=== PATIENT | male | born 1930 | race Caucasian/White ===

== ENCOUNTER 2016-11-02 10:05 | Inpatient (IN) | payer MEDICARE, BC ==
[~2016-11-02 10:05] MED LIST: ATROPINE SULFATE 0.1 MG/ML 10ML SYRINGE ONE; EPINEPHrine 10 ML SYRINGE (0.1 MG/ML) ONE; LIDOCAINE 2% SYG (PF) 100 MG/5 ML ONE; SODIUM BICARB 8.4% 50 ML SYR (1 MEQ/ML) ONE
[2016-11-02] MEDS ORDERED: PANTOPRAZOLE 40 MG/10 ML VIAL IVP STA (10:18)
[2016-11-02] MEDS ORDERED: SODIUM CHLORIDE 0.9% 1,000 ML IV STA ×2 (10:18)
[2016-11-02] MEDS ORDERED: ONDANSETRON 4 MG/2 ML VIAL IVP STA (10:18)
--- NOTE | 2016-11-02 10:22 | ED ---
General Adult HPI - General Chief complaint: GI Bleed Stated complaint: JORDAN Time Seen by Provider: 11/02/16 10:06 Source: EMS, RN notes reviewed, old records reviewed Mode of arrival: EMS Limitations: no limitations - History of Present Illness Initial comments: This is an 85-year-old male here for evaluation. Patient coming in for evaluation of weakness and dizziness. Patient is on blood thinners, warfarin, patient states is having dark tarry stools for 3 days, and currently bright red blood in his stool. No episodes of syncope. Patient had bowel movement that was positive for blood about 4 hours prior to arrival. Patient has had no bowel movement since, he does feel weak and lightheaded. Symptoms are worse with exertion, patient does have positive history of colonoscopy 2 which are both negative. No history of GI bleed - Related Data Home Medications Medication Instructions Recorded Confirmed Atenolol [Tenormin] 25 mg PO DAILY 11/02/16 11/02/16 Atorvastatin [Lipitor] 20 mg PO HS 11/02/16 11/02/16 Furosemide [Lasix] 20 mg PO DAILY 11/02/16 11/02/16 Lisinopril [Zestril] 10 mg PO DAILY 11/02/16 11/02/16 Warfarin [Coumadin] 2.5 mg PO WE 11/02/16 11/02/16 Warfarin [Coumadin] 5 mg PO SUMOTUTHFRSA 11/02/16 11/02/16 amLODIPine [Norvasc] 10 mg PO DAILY 11/02/16 11/02/16 glyBURIDE, MICRONIZED [Glynase] 3 mg PO AC-BRKFST 11/02/16 11/02/16 hydrALAZINE HCL [Apresoline] 25 mg PO TID 11/02/16 11/02/16 metFORMIN HCL [Glucophage] 1,000 mg PO BID 11/02/16 11/02/16 sitaGLIPtin [Januvia] 100 mg PO DAILY 11/02/16 11/02/16 Allergies Allergy/AdvReac Type Severity Reaction Status Date / Time Sulfa (Sulfonamide Allergy Unknown Verified 11/02/16 10:43 Antibiotics) Review of Systems ROS Statement: Those systems with pertinent positive or pertinent negative responses have been documented in the HPI. ROS Other: All systems not noted in ROS Statement are negative. Past Medical History Past Medical History: Diabetes Mellitus History of Any Multi-Drug Resistant Organisms: None Reported Additional Past Surgical History / Comment(s): cataract, prostate Past Psychological History: No Psychological Hx Reported Smoking Status: Never smoker Past Alcohol Use History: None Reported Past Drug Use History: None Reported General Exam Limitations: no limitations General appearance: alert, in no apparent distress, anxious Head exam: Present: atraumatic, normocephalic, normal inspection Eye exam: Present: normal appearance, PERRL, EOMI. Absent: scleral icterus, conjunctival injection, periorbital swelling ENT exam: Present: normal exam, mucous membranes moist Neck exam: Present: normal inspection. Absent: tenderness, meningismus, lymphadenopathy Respiratory exam: Present: normal lung sounds bilaterally. Absent: respiratory distress, wheezes, rales, rhonchi, stridor Cardiovascular Exam: Present: regular rate, normal rhythm, normal heart sounds. Absent: systolic murmur, diastolic murmur, rubs, gallop, clicks GI/Abdominal exam: Present: soft, normal bowel sounds. Absent: distended, tenderness, guarding, rebound, rigid Extremities exam: Present: normal inspection, full ROM, normal capillary refill. Absent: tenderness, pedal edema, joint swelling, calf tenderness Back exam: Present: normal inspection Neurological exam: Present: alert, oriented X3, CN II-XII intact Psychiatric exam: Present: normal affect, normal mood Skin exam: Present: warm, dry, intact, normal color. Absent: rash Course Vital Signs 11/02/16 10:08 Temperature 97 F L Pulse Rate 87 Respiratory 20 Rate Blood Pressure 123/63 O2 Sat by Pulse 99 Oximetry - Reevaluation(s) Reevaluation #1: 11/02/16 11:33 Patient does still feel weak but is without blood in the stool here in the emergency room EKG Findings - EKG Comments: EKG Findings:: EKG shows NSR rate of 92, OR of 162, QRS of 102, QTc of 467 Medical Decision Making - Medical Decision Making 85 male the ER for evaluation of GI bleed, 3 days of GI bleed blood in stool on Coumadin with Coumadin coagulopathy, patient will be admitted for blood transfusion, monitoring of hemodynamic status - Lab Data Result diagrams: 11/02/16 10:40 Lab Results 11/02/16 Range/Units 10:40 WBC 7.8 (3.8-10.6) k/uL RBC 2.72 L (4.30-5.90) m/uL Hgb 5.5 L* (13.0-17.5) gm/dL Hct 19.9 L* (39.0-53.0) % MCV 73.1 L (80.0-100.0) fL MCH 20.3 L (25.0-35.0) pg MCHC 27.8 L (31.0-37.0) g/dL RDW 17.9 H (11.5-15.5) % Plt Count 336 (150-450) k/uL Neutrophils % 83 % Lymphocytes % 9 % Monocytes % 6 % Eosinophils % 0 % Basophils % 0 % Neutrophils # 6.5 (1.3-7.7) k/uL Lymphocytes # 0.7 L (1.0-4.8) k/uL Monocytes # 0.5 (0-1.0) k/uL Eosinophils # 0.0 (0-0.7) k/uL Basophils # 0.0 (0-0.2) k/uL Hypochromasia Marked Poikilocytosis Slight Anisocytosis Slight Microcytosis Moderate Critical Care Time Critical Care Time: Yes Total Critical Care Time: 31 Disposition Clinical Impression: Gastrointestinal hemorrhage, Anemia, Coumadin toxicity Disposition: ADMITTED IP TO THIS HOSP Condition: Serious Instructions: Gastrointestinal Bleeding (ED) Referrals: Donovan Starks MD [Primary Care Provider] - 1-2 days
[2016-11-02 11:18] LABS: Anisocytosis Slight; Basophils % (A) 0 %; CH 20.3; CHCM 28.1; Eosinophils % (A) 0 %; HDW 3.93; Hypochromasia Marked; Luc # (Auto) 0.14; Luc % (Auto) 2; Lymphocytes # (A) 0.7 k/uL (1.0-4.8); Lymphocytes % (A) 9 %; MCH 20.3 pg (25.0-35.0); MCV 73.1 fL (80.0-100.0); Mean Platelet Volume 7.8; Microcytosis Moderate; Monocytes # (A) 0.5 k/uL (0-1.0); Monocytes % (A) 6 %; Neutrophils # (A) 6.5 k/uL (1.3-7.7); Neutrophils % (A) 83 %; Poikilocytosis Slight; RBC 2.72 m/uL (4.30-5.90); RDW 17.9 % (11.5-15.5); WBC 7.8 k/uL (3.8-10.6); WBC (Perox) 6.92
[2016-11-02 11:21] LABS: MCHC 27.8 g/dL (31.0-37.0)
[2016-11-02 11:24] LABS: HGB 5.5 gm/dL (13.0-17.5)
[2016-11-02 11:25] LABS: HCT 19.9 % (39.0-53.0)
[2016-11-02] MEDS ORDERED: PHYTONADIONE ORAL 5 MG/5 ML ORAL.SYRG PO STA (11:33)
[2016-11-02] MEDS ORDERED: ONDANSETRON 4 MG/2 ML VIAL IVP PRN (11:34)
[2016-11-02 11:47] LABS: Calcium 8.9 mg/dL (8.4-10.2); Magnesium 1.3 mg/dL (1.6-2.3); Potassium 4.7 mmol/L (3.5-5.1); Total Bilirubin 0.3 mg/dL (0.2-1.3); Total Protein 5.9 g/dL (6.3-8.2)
[2016-11-02 12:02] LABS: Creatine Kinase MB 3.5 ng/mL (0.0-2.4); Troponin I 0.092 ng/mL (0.000-0.034)
[2016-11-02 13:18] LABS: Partial Thromboplastin Time 51.5 sec (22.0-30.0)
[2016-11-02] MEDS: MAGNESIUM SULFATE-D5W PMX 1 GM in DEXTROSE/WATER 1 100ML.BAG IVPB SCH ×3 (13:27→17:44)
[2016-11-02 13:59] LABS: Prothrombin Time >130.0 sec (9.0-12.0)
[2016-11-02 14:02] LABS: INR >10.0 (<1.1)
[2016-11-02] MEDS ORDERED: PHYTONADIONE 5 MG in SODIUM CHLORIDE 0.9% 50 ML IVPB STA (14:18)
[2016-11-02 15:51] LABS: Glucose,Whole Blood 172 mg/dL (75-99)
--- NOTE | 2016-11-02 17:16 | P.CNPUL ---
History of Present Illness Consult date: 11/02/16 Requesting physician: Reji Magana Reason for consult: other (ICU management) Chief complaint: GI bleeding and weakness History of present illness: This is an 85-year-old white male with history of multiple medical problems including hypertension, diabetes, atrial fibrillation, history of DVT, patient is chronically on Coumadin. Patient presented to the ER today with mostly symptoms of weakness and dizziness. In the last 5 days, the patient has been noticing dark tarry stools, and today, he has been noticing bright red blood per rectum. Patient is feeling weak, lightheaded, dizzy, hence upon evaluation in the ER he was noted to have significantly elevated pro time and INR, and hemoglobin of 5.5. Hence the patient was admitted, orders to have fresh frozen plasma and to have at least a 3 units of packed RBCs were given. Presently the patient is in the ICU, he seems to be hemodynamically stable, and we are waiting for blood to come from [place] to be given. In the meantime the patient received vitamin K for his coagulopathy. Upon my evaluation, the patient denies any shortness of breath. Denies any headaches, no blurred vision , but feels lightheaded. Denies any chest pain. No palpitations. No nausea no vomiting no abdominal pain, no hematemesis. Review of Systems 14 point review of systems were obtained, please refer to pertinent positives and negatives in HPI. Past Medical History Past Medical History: Atrial Fibrillation, Heart Failure, Diabetes Mellitus, Hyperlipidemia, Hypertension, Osteoarthritis (OA), Prostate Disorder, Renal Disease Additional Past Medical History / Comment(s): Recent respiratory "infection"-pt did not go to doctors, NIDDM type II, BPH with prostatectomy, nephrolithiasis, History of Any Multi-Drug Resistant Organisms: None Reported Past Surgical History: Heart Catheterization Additional Past Surgical History / Comment(s): bilateral cataract, prostatectomy , colonoscopy x 2, cardiac cath 2012-tx medically. Past Anesthesia/Blood Transfusion Reactions: No Reported Reaction Past Psychological History: No Psychological Hx Reported Additional Psychological History / Comment(s): Pt resides with his spouse who is currently home sick with a respiratory illness. Pt uses a cane to ambulate most of the time. He drives locally. Smoking Status: Never smoker Past Alcohol Use History: None Reported Past Drug Use History: None Reported - Past Family History Father Family Medical History: No Reported History Mother Family Medical History: Cancer Additional Family Medical History / Comment(s): Mother had breast cancer and heart disease. Medications and Allergies Home Medications Medication Instructions Recorded Confirmed Type Atenolol [Tenormin] 25 mg PO DAILY 11/02/16 11/02/16 History Atorvastatin [Lipitor] 20 mg PO HS 11/02/16 11/02/16 History Furosemide [Lasix] 20 mg PO DAILY 11/02/16 11/02/16 History Lisinopril [Zestril] 10 mg PO DAILY 11/02/16 11/02/16 History Warfarin [Coumadin] 2.5 mg PO WE 11/02/16 11/02/16 History Warfarin [Coumadin] 5 mg PO SUMOTUTHFRSA 11/02/16 11/02/16 History amLODIPine [Norvasc] 10 mg PO DAILY 11/02/16 11/02/16 History glyBURIDE, MICRONIZED [Glynase] 3 mg PO AC-BRKFST 11/02/16 11/02/16 History hydrALAZINE HCL [Apresoline] 25 mg PO TID 11/02/16 11/02/16 History metFORMIN HCL [Glucophage] 1,000 mg PO BID 11/02/16 11/02/16 History sitaGLIPtin [Januvia] 100 mg PO DAILY 11/02/16 11/02/16 History Allergies Allergy/AdvReac Type Severity Reaction Status Date / Time Sulfa (Sulfonamide Allergy Unknown Verified 11/02/16 10:43 Antibiotics) Physical Exam Vitals: Vital Signs Temp Pulse Pulse Pulse Resp BP BP 11/02/16 17:00 95 22 103/64 11/02/16 16:19 97.3 F L 94 23 108/71 11/02/16 15:09 76 18 93/46 11/02/16 14:28 96.6 F L 86 94 16 98/58 11/02/16 13:06 91 109/60 11/02/16 11:48 97.5 F L 89 18 127/58 Pulse Ox 11/02/16 17:00 93 L 11/02/16 16:19 90 L 11/02/16 15:09 100 11/02/16 14:28 94 L 11/02/16 13:06 92 L 11/02/16 11:48 100 Intake and Output 11/02/16 11/02/16 11/02/16 06:59 14:59 22:59 Intake Total 450 Output Total 200 Balance 250 Intake: IV 50 Phytonadione 5 mg In 50 Sodium Chloride 0.9% 50 ml @ 100 mls/hr IVPB ONCE STA Rx#:[id number] Intake, IV Titration 400 Amount Magnesium Sulfate-D5w Pmx 200 1 gm In Dextrose/Water 1 100ml.bag @ 100 mls/hr IVPB Q1H UGO Rx#: [id number] Sodium Chloride 0.9% 1, 200 000 ml @ 100 mls/hr IV . Q10H STA Rx#:[id number] Blood Product 0 Ffp 24 Cpd Unit 0 [id number] Output: Urine 200 Other: # Voids 0 Physical Exam: Revealed an 85-year-old white male, pleasant, in no distress, but looks relatively pale. HEENT:[Neck is supple.] [No neck masses.] [No thyromegaly.] [No JVD.] Chest: [Clear throughout, no crackles, no rhonchi, no wheezes.] Cardiac Exam: [Irregular irregular rhythm Normal S1 and S2, no S3 gallop, no murmur.] Abdomen: [Soft, nontender, no megaly, no rebound, no guarding, normal bowel sounds.] Extremities: [No clubbing, no edema, no cyanosis.] Neurological Exam: [No focal neurologic deficit.] Results - Laboratory Findings CBC and BMP: 11/02/16 10:40 11/02/16 10:40 PT/INR, D-dimer PT >130.0 sec (9.0-12.0) H 11/02/16 12:40 INR >10.0 (<1.1) H* 11/02/16 12:40 Abnormal lab findings: Abnormal Labs 11/02/16 11/02/16 12:40 15:49 PT >130.0 H INR >10.0 H* APTT 51.5 H POC Glucose (mg/dL) 172 H Assessment and Plan Plan: Impression: 1 Acute GI bleeding exact source is not clear, probably upper GI in nature considering the patient was having black tarry stools for a few days prior to presentation. This is most likely triggered by his Coumadin related coagulopathy. 2 acute Coumadin coagulopathy with elevated pro time INR. 3 history of multiple comorbidities including chronic atrial fibrillation, hypertension, diabetes, and hyperlipidemia. Recommendation: Agree with the present treatment plan, patient will be placed on PPIs, continue plans to transfuse the patient with at least 4 units of fresh frozen plasma, and possibly at least a 3 units of packed RBCs. Monitor the patient in the ICU, GI consultation is pending. We'll continue to follow. Time with Patient: Greater than 30
[2016-11-02] MEDS: INSULIN LISPRO (humaLOG) 300 UNIT/3 ML VIAL SQ SCH ×2 (18:20→21:12)
[2016-11-02 19:05] LABS: Hemoglobin A1C 6.6 % (4.2-6.1)
[2016-11-02 20:13] LABS: Glucose,Whole Blood 155 mg/dL (75-99)
[2016-11-02] MEDS ORDERED: PANTOPRAZOLE 40 MG/10 ML VIAL IVP SCH (21:00)
[2016-11-02] MEDS ORDERED: FUROSEMIDE 10 MG/ML 2 ML VIAL IV ONE (21:30)
[2016-11-03 00:53] VITALS: TEMP 96.6
[2016-11-03] MEDS ORDERED: NOREPINEPHRINE 4 MG-0.9% NS PMX 250 ML IV ONE (03:06)
[2016-11-03 03:58] VITALS: BP 83/59; PULSE 116; RESP 26
--- NOTE | 2016-11-03 08:00 | HP ---
DATE OF ADMISSION: 11/02/2016 PRESENTING COMPLAINT: GI bleed. HISTORY OF PRESENTING COMPLAINT: This is a very pleasant 85-year-old patient of Dr. Starks, whose chronic stable medical conditions include atrial fibrillation, diabetes, hypertension, hyperlipidemia, kidney stones, chronic kidney disease, osteoarthritis. Patient is on Coumadin, did take some aspirin. Patient having dark stools including fresh blood for 2 - 3 days, became dizzy, lightheaded, and also had an INR of greater than 10. Patient did get a total of 10 mg of vitamin K including 5 in the ER and 5 on the floor, hemoglobin had dropped down to 5.5. Patient came to the floor and I moved the patient to ICU. Three units of blood and fresh frozen plasma also additionally ordered. Patient still feels weak and tired. REVIEW OF SYSTEMS: CONSTITUTIONAL: Weak and tired. HEENT: Decreased hearing. RESPIRATORY: Mild short of breath. CARDIOVASCULAR: None. GASTROINTESTINAL: None. GENITOURINARY: None. MUSCULOSKELETAL: Aches and pains in the joints. DERMATOLOGICAL: None. HEMATOLOGICAL: None. LYMPHATIC: None. PSYCHIATRY: None. NEUROLOGICAL: None. Past history of atrial fibrillation, diabetes, hypertension, hyperlipidemia, osteoarthritis, kidney stones and chronic kidney disease. PAST SURGICAL HISTORY: Cardiac catheter, cataract surgery, prostatectomy, cardiac cath in 2011 to which he did medically. SOCIAL HISTORY: . No smoking, no alcohol, retired. Family history of breast cancer and heart disease. HOME MEDICATIONS: 1. Januvia 100 mg p.o. daily. 2. Hydralazine 25 mg p.o. t.i.d. 3. Glynase 3 mg with breakfast. 4. Coumadin 5 mg daily except 2.5 mg on Wednesday. 5. Lasix 20 mg a day. 6. Glucophage 1000 mg p.o. b.i.d. 7. Zestril 10 mg p.o. daily. 8. Lipitor 20 mg q.h.s. 9. Tenormin 25 mg p.o. daily. 10. Norvasc 10 mg p.o. daily. Allergies to SULFA. On examination, vital signs on presentation: Temperature 97.5, pulse 87, respirations 20, blood pressure 120/63, pulse ox 99% on room air. GENERAL APPEARANCE: Average build, lying in bed, tired-appearing. EYES: Pupils equal, conjunctivae are pale. HEENT: External appearance of nose and ears normal. Oral cavity normal. NECK: JVD not raised. Mass not palpable. Respiratory effort normal. LUNGS: Diminished breath sounds. CARDIOVASCULAR: Heart sounds irregular. No edema. ABDOMEN: Soft, nontender. Liver and spleen not palpable. LYMPHATIC: No lymph nodes palpable in neck or axillae. PSYCHIATRY: Answering questions. NEUROLOGICAL: Power and sensation grossly intact. MUSCULOSKELETAL: Osteoarthritis of multiple joints. INVESTIGATIONS: White count 7.8, hemoglobin 5.5, potassium 4.6, BUN 39, creatinine 1.37. INR greater than 10. Troponin 0.092. ASSESSMENT: 1. Acute gastrointestinal bleed from Coumadin toxicity. In addition patient did take aspirin. 2. Coumadin toxicity. 3. Acute severe blood loss anemia from gastrointestinal bleed. 4. Hypotension from blood loss. 5. Chronic kidney disease stage III from nephrosclerosis and diabetic nephropathy. 6. History of atrial fibrillation, patient chronically on Coumadin. 7. Diabetes mellitus type 2. 8. Hyperlipidemia. 9. Hypertension. 10. Primary osteoarthritis of multiple joints, bilateral. PLAN: The patient is ordered 3 units of blood, fresh frozen plasma, vitamin K was given, admitted to the ICU for close clinical monitoring. I did consult Dr. Rose from critical care and Dr. Dias from GI. Antihypertensives temporarily being held. Accu-Cheks will be closely followed. Care was discussed with the patient.
[2016-11-03] MEDS ORDERED: PANTOPRAZOLE 40 MG/10 ML VIAL IVP SCH (09:00)
[2016-11-03] MEDS ORDERED: amLODIPine 10 MG TAB PO SCH (09:00)
[2016-11-03] MEDS ORDERED: ATENOLOL 25 MG TAB PO SCH (09:00)
--- NOTE | 2016-11-03 11:09 | DS ---
DATE OF ADMISSION: 11/02/2016 DATE PATIENT : 11/03/2016 CAUSE OF : Acute gastrointestinal bleed. OTHER MEDICAL CONDITIONS: 1. Coumadin toxicity causing gastrointestinal bleed. 2. Acute severe blood loss anemia from gastrointestinal bleed. 3. Hypotension from blood loss. 4. Chronic kidney disease stage III and diabetic nephropathy. 5. History of atrial fibrillation. 6. Diabetes mellitus type 2. 7. Hyperlipidemia. 8. History of essential hypertension. 9. Primary osteoarthritis of multiple joints, bilateral. CONSULTATIONS: 1. Dr. Rose from Critical Care. 2. Dr. Jessica Dias from GI. HOSPITAL COURSE: This patient presented with Coumadin toxicity, GI bleed. Patient was transfused 3 units of blood, fresh frozen plasma, vitamin K was given. Patient then had a cardiac arrest, intubated. The patient then was made DNR and per family/'s wishes and patient succumbed to the underlying condition.
--- NOTE | 2016-11-05 12:34 | CDI ---
In responding to this query, please exercise your independent professional judgment. The [facility] Coding Staff and Clinical Documentation Specialists appreciate your assistance in clarifying documentation, maintaining compliance with coding guidelines, accurately documenting patients condition and capturing severity of illness. The fact that a question is asked does not imply that any particular answer is desired or expected. Communication forms are a method of clarifying documentation and are not made part of the Legal Health Record. Thank you in advance for your clarification. Last Revision, August 2015 Marcio Cash [address] [place] [address] Documentation Clarification Form Date: 11/05/2016 12:26:00 PM From: Amanda Rocha, FADI, CCDS Admit Date: 11/02/2016 11:33:00 AM Patient Name: Timothy Pollock Visit Number: [id number] Discharge Date: 11/03/2016 Dr. Reji Magana: Patient presents with a BUN 39, Creatinine 1.37, GFR 49, Glucose 141, Hgb A1c 6.6. History: Hypertension, DM, CKD stage III. Clinical Indicators: Lab values as above. Presented with GI bleed and acute blood loss anemia. Treatment: IV fluid rate 100, IV fluid bolus, IV Zofran, IV Protonix, IV Mag Sulfate, IV Vit K, Insulin sub q. Consults: GI, Pulmonary. In order to capture the severity of condition, please clarify if the condition signifies: Acute renal failure Please specify (if known): Cortical, Medullary, or Tubular Necrosis? Acute kidney injury Acute on chronic renal failure Unable to determine Other, specify Please document in your progress notes and discharge summary in order to capture severity of illness and risk of mortality. Include clinical findings that support your diagnosis. FYI: Press F11 to launch patient chart. Place X here if this finding has no clinical significance, is not applicable or if you are not able to provide any additional documentation. Thank You. MATTHEW
--- NOTE | 2016-11-05 12:43 | CDI ---
In responding to this query, please exercise your independent professional judgment. The [facility] Coding Staff and Clinical Documentation Specialists appreciate your assistance in clarifying documentation, maintaining compliance with coding guidelines, accurately documenting patients condition and capturing severity of illness. The fact that a question is asked does not imply that any particular answer is desired or expected. Communication forms are a method of clarifying documentation and are not made part of the Legal Health Record. Thank you in advance for your clarification. Last Revision, December 2015 Marcio Cash [address] [place] [address] Documentation Clarification Form Date: 11/05/2016 12:34:00 PM From: Amanda Rocha CCS, CCDS Admit Date: 11/02/2016 11:33:00 AM Patient Name: Timothy Pollock Visit Number: [id number] Discharge Date: 11/03/2016 Dr. Reji Magana: 85 yo male, presented to with GI bleed., hemoglobin dropped to 5.5, admitted to ICU. Received three units of blood & FFP. Patient history/risk factors: Hypertension, DM, CKD III, CHF. Clinical Indicators: Hgb 5.5, became unresponsive, bradycardic in ICU, required intubation, made DNR, . Vitals: T 96.6, P 116, R 36, BP 83/59, PO 78 on 4Lnc. Treatment: IV fluids, IV fluid bolus, intubation. In your professional opinion, can you please specify the type of shock if known ? Septic Shock o Suspected or known causative organism o Any associated organ failure Cardiogenic Shock o Cause: Hypovolemic Shock o Cause: Other, please specify: Unable to determine Please document in your progress notes and discharge summary in order to capture severity of illness and risk of mortality. Include clinical findings that support your diagnosis. FYI: Press F11 to launch patient chart. __+___ Place X here if this finding has no clinical significance, is not applicable or if you are not able to provide any additional documentation. Thank You. MATTHEW
--- NOTE | 2016-11-05 12:51 | CDI ---
In responding to this query, please exercise your independent professional judgment. The [facility] Coding Staff and Clinical Documentation Specialists appreciate your assistance in clarifying documentation, maintaining compliance with coding guidelines, accurately documenting patients condition and capturing severity of illness. The fact that a question is asked does not imply that any particular answer is desired or expected. Communication forms are a method of clarifying documentation and are not made part of the Legal Health Record. Thank you in advance for your clarification. Last Revision, December 2015 Marcio Cash [address] [place] [address] Documentation Clarification Form Date: 11/05/2016 12:44:00 PM From: Amanda Rocha CCS, CCDS Admit Date: 11/02/2016 11:33:00 AM Patient Name: Timothy Pollock Visit Number: [id number] Discharge Date: 11/03/2016 Dr. Reji Magana: CHF is documented in the ED note & the H&P as a history. History/Risk Factors: Hypertension, CKD III, DM. Clinical Indicators: Admitted with GI bleed, became unresponsive, intubated in ICU, . CHF with no other specificity is documented. Admitting VS: T 97, P 87, R 20-22 (sob), BP 123/63, PO 99 - 92 ra. Na 146, CKMB 3.5, Troponin 0.092 EKG: R 92 Sinus rhythm with PVCs, ST & T wave abnormality, prolonged QT. Treatment: IV Lasix, Insulin sq, IV MagSulfate, IV Levophed, IV Zofran, IV NaBicarb Consults: GI, Pulmonary/Critical Care In your professional opinion, can you please clarify the acuity and type of CHF if known? 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 Include clinical findings that support your diagnosis. FYI: Press F11 to launch patient chart. ___+__ Place X here if this finding has no clinical significance, is not applicable or if you are not able to provide any additional documentation. Thank You. MATTHEW
--- NOTE | 2016-11-05 13:00 | CDI ---
In responding to this query, please exercise your independent professional judgment. The [facility] Coding Staff and Clinical Documentation Specialists appreciate your assistance in clarifying documentation, maintaining compliance with coding guidelines, accurately documenting patients condition and capturing severity of illness. The fact that a question is asked does not imply that any particular answer is desired or expected. Communication forms are a method of clarifying documentation and are not made part of the Legal Health Record. Thank you in advance for your clarification. Last Revision, December 2015 Marcio Cash [address] [facility] [place] [address] Documentation Clarification Form Date: 11/05/2016 12:51:00 PM From: Amanda Rocha CCS, CCDS Admit Date: 11/02/2016 11:33:00 AM Patient Name: Timothy Pollock Visit Number: [id number] Discharge Date: 11/03/2016 Dr. Reji Magana: The patient presented with a GI bleed, c/o weakness & dizziness. patient is on blood thinners, Warfarin. Patient's hemoglobin dropped to 5.5, received 3 units FFP, transferred to ICU, became unresponsive, intubated. Subsequently made DNR per family & . History/Risk Factors: Hypertension, DM, CHF, CKD III. Clinical Indicators: VS prior to intubation: T 96.9, P 125, R 36, BP 83/59, PO 78 4Lnc. Treatment: IV fluids, IV fluid bolus, IV MagSulfate, IV NaBicarb, IV Lasix, Intubated. In your professional opinion, can you please clarify if these findings signify one of the following conditions? Acuity: o Acute o Chronic o Acute on Chronic Respiratory Status: o Respiratory failure o Respiratory failure with hypercapnia o Respiratory failure with hypoxia o Acute Respiratory Distress o Other Diagnosis, please specify o Unable to determine Please document in your progress notes and discharge summary in order to capture severity of illness and risk of mortality. Include clinical findings that support your diagnosis. FYI: Press F11 to launch patient chart. ___+__ Place X here if this finding has no clinical significance, is not applicable or if you are not able to provide any additional documentation. Thank You. MATTHEW
== END 2016-11-03 06:33 | disposition expired | DRG 378 ==
LOC: EC 10:05 → 6SEL 11:33 → 6ICU 15:37
PROVIDERS: ADMIT Hospitalist; ATTEND Hospitalist
PROC: 30233K1 Transfusion of Nonautologous Frozen Plasma into Peripheral Vein, Percutaneous Approach (ICD-10-PCS; 2016-11-02)
PROC: 5A12012 Performance of Cardiac Output, Single, Manual (ICD-10-PCS; principal; 2016-11-03)
PROC: 5A1935Z Respiratory Ventilation, Less than 24 Consecutive Hours (ICD-10-PCS; 2016-11-03)
PROC: 0BH17EZ Insertion of Endotracheal Airway into Trachea, Via Natural or Artificial Opening (ICD-10-PCS; 2016-11-03)
DX: K92.2 Gastrointestinal hemorrhage, unspecified (principal); D68.32 Hemorrhagic disorder due to extrinsic circulating anticoagulants; I46.9 Cardiac arrest, cause unspecified; E11.21 Type 2 diabetes mellitus with diabetic nephropathy; I13.0 Hypertensive heart and chronic kidney disease with heart failure and stage 1 through stage 4 chronic kidney disease, or unspecified chronic kidney disease; I95.9 Hypotension, unspecified; E11.22 Type 2 diabetes mellitus with diabetic chronic kidney disease; I50.9 Heart failure, unspecified; D62 Acute posthemorrhagic anemia; I48.2 Chronic atrial fibrillation; Z66 Do not resuscitate; N18.3 Chronic kidney disease, stage 3 (moderate); T45.515A Adverse effect of anticoagulants, initial encounter; N40.0 Benign prostatic hyperplasia without lower urinary tract symptoms; E78.5 Hyperlipidemia, unspecified; M19.91 Primary osteoarthritis, unspecified site; R53.1 Weakness; Z80.3 Family history of malignant neoplasm of breast; Z79.01 Long term (current) use of anticoagulants; Z88.2 Allergy status to sulfonamides; Z79.84 Long term (current) use of oral hypoglycemic drugs; Z79.82 Long term (current) use of aspirin; Z79.899 Other long term (current) drug therapy; Z86.718 Personal history of other venous thrombosis and embolism; Z98.42 Cataract extraction status, left eye; Z98.41 Cataract extraction status, right eye; Z82.49 Family history of ischemic heart disease and other diseases of the circulatory system; Z90.79 Acquired absence of other genital organ(s); Z86.19 Personal history of other infectious and parasitic diseases; Z87.442 Personal history of urinary calculi
CPT/HCPCS: 36415; 80053; 82550; 82553; 83036; 83690; 83735; 84484; 85025; 85610; 85730; 86850; 86870; 86880; 86885; 86900; 86901; 86905; 86920; 93005; 94002; 96374; 96375; 99291